=== PATIENT | female | born 1940 | race Two or more races ===

== ENCOUNTER 2021-08-06 14:42 | Emergency (ER) | payer MEDICARE ==
[~2021-08-06] VITALS: Ht 152.4 cm; Wt 59.9 kg
[2021-08-06] MEDS ORDERED: METF-442 PO (15:07)
[2021-08-06] MEDS ORDERED: SITA50TA GT (15:08)
[2021-08-06] MEDS ORDERED: METO100T14 PO (15:08)
[2021-08-06] MEDS ORDERED: CHLO25TA2 PO (15:09)
[2021-08-06] MEDS ORDERED: ATOR20TA PO (15:10)
[2021-08-06] MEDS ORDERED: DULO60CA45 PO (15:10)
[2021-08-06] MEDS ORDERED: AMIT10TA6 PO ×2 (15:11→15:14)
[2021-08-06] MEDS ORDERED: SITA50TA PO (15:15)
[2021-08-06 15:46] LABS: MEAN CORPUSCULAR HEMOGLOBIN 32.3 uug (24.7-32.8); MEAN CORPUSCULAR VOLUME 93.5 fL (75.5-95.3); PLATELET COUNT (AUTO) 243 K/uL (179-408)
[2021-08-06 15:52] LABS: CREATININE 1.3 mg/dL (0.6-1.3); POTASSIUM 4.8 mmol/L (3.5-5.1)
[2021-08-06] MEDS ORDERED: MORPHINE SULFATE 4 MG/1 ML DISP.SYRIN ONE (15:58)
[2021-08-06] MEDS ORDERED: MECLIZINE HCL 25 MG TABLET ONE (15:58)
[2021-08-06] MEDS ORDERED: ONDANSETRON 4 MG/2 ML VIAL ONE (15:58)
[2021-08-06 16:05] LABS: BILIRUBIN,TOTAL 0.8 mg/dL (0.2-1.0); TOTAL PROTEIN, SERUM 8.2 g/dL (6.4-8.2)
[2021-08-06] MEDS: ONDANSETRON 4 MG/2 ML VIAL IV ONE (16:06)
[2021-08-06] MEDS: MORPHINE SULFATE 2 MG/1 ML DISP.SYRIN IV ONE (16:06)
[2021-08-06] MEDS ORDERED: ACETAMINOPHEN 325 MG TABLET ONE ×2 (16:12→16:19)
[2021-08-06] MEDS: IV NORMAL SALINE 500 ML BAG IV ONE ×2 (16:15→16:25)
[2021-08-06] MEDS: MECLIZINE HCL 25 MG TABLET PO ONE (16:24)
[2021-08-06] MEDS: ACETAMINOPHEN 325 MG TABLET PO ONE (16:24)
[2021-08-06] MEDS ORDERED: MECL-159 PO (17:59)
[2021-08-06 18:18] VITALS: BP 150/80
--- NOTE | 2021-08-06 18:19 | NUR ---
Patient discharged to home in stable condition. Written and verbal after care instructions given to patient and family member. Patient verbalizes understanding of instructions. Stressed follow up or return to ER for worsening s/s.
== END 2021-08-06 18:19 | disposition home or self-care (01) ==
LOC: ER 14:42
DX: R42 Dizziness and giddiness (principal); I10 Essential (primary) hypertension; Z88.6 Allergy status to analgesic agent; E11.9 Type 2 diabetes mellitus without complications; Z79.84 Long term (current) use of oral hypoglycemic drugs
CPT/HCPCS: 36415; 70450; 71045; 80053; 82962; 83880; 84484 ×2; 85025; 93005; 96374; 96375; 99285; J2270; J2405; J7040; A4663; J8597